=== PATIENT | male | born 1940 | race Caucasian/White ===

== ENCOUNTER 2019-08-04 11:50 | Inpatient (IN) | payer MEDICARE, OTHER, SELFPAY ==
[2019-07-29 09:40] VITALS: BMI 33.5
[2019-08-04] VITALS (12 sets, daily range): BP systolic 95–180; BP diastolic 54–95; PULSE 69–105; RESP 10–24; TEMP 36.2–36.6; O2SAT 2–99; BMI 33.5
--- NOTE | 2019-08-04 06:46 | DI.RAD.S_ITS ---
PROCEDURE: XR HIP W PEL IF DONE LT 2V INDICATIONS: post op films TECHNIQUE: 2 view(s) of the hip acquired. COMPARISON: [facility], CR, XR PELVIS WITH LATERAL HIP LEFT, 06/17/2019, 9:52. [facility], CR, XR PELVIS 1-2V, 08/04/2019, 16:03. FINDINGS: Bones: Patient is status post left hip arthroplasty, with hardware components in expected positions. The hip joint appears congruent. The visualized bony structures appear intact. Soft tissues: Overlying postoperative changes are noted. No suspicious soft tissue densities. IMPRESSION: Left hip prosthesis in anatomic alignment. Dictated by: Austin Ricketts M.D. on 08/04/2019 at 19:17 Approved by: Austin Ricketts M.D. on 08/04/2019 at 19:18
[2019-08-04] MEDS: LACTATED RINGERS 1,000 ML 42 ML IV ×2 (12:54→17:04)
[2019-08-04] MEDS: VANCOMYCIN 1,000 MG/200 ML PIGGYBACK 200 MG IV (13:41)
[2019-08-04] MEDS: PREGABALIN 75 MG CAPSULE PO (13:42)
[2019-08-04] MEDS: ACETAMINOPHEN 325 MG TABLET 975 MG PO (13:42)
--- NOTE | 2019-08-04 13:53 | PM.PREOP ---
Pre-operative Note Interval Note History & Physical reviewed/Exam performed by Physician: Yes Changes to H&P: No
--- NOTE | 2019-08-04 13:53 | PM.OP.1 ---
Operative Date/Time/Diagnoses Date of procedure: 08/04/19 Time of procedure: 14:31 Pre-op diagnosis: Left hip OA Post-op diagnosis: same Procedure & Clinicians Procedure: Left total hip arthroplasty Same procedure as scheduled: Yes Indications: The patient has had progressively worsening left hip pain with radiographic changes consistent with arthritis. Non-operative management has failed and the patient has requested total hip replacement. The risks, benefits and alternatives to surgery were discussed with the patient prior to proceeding. Risks discussed included, but were not limited to, failure to relieve pain, leg length discrepancy, dislocation, stiffness, infection, nerve damage, deep venous thrombosis, pulmonary embolism, stroke, coma, heart attack, permanent paralysis and , as well as the potential need for eventual revision of the prosthetic. Surgeon: Wendy Rush Conservation Officer: Birgit Falk Anesthesia Type: General and Spinal Operative Notes Findings: Severe left hip arthritis, adequate stability, adequate bone Closure Type: primary Specimen(s): none sent Prosthetic devices, grafts, tissues, transplants, or devices: 54 mm R3 cup, 54 neutral poly liner, size 7 high offset femoral stem, +0 head Applied: catheter and drain(s) Estimated Blood Loss (mL): 250 Blood products transfused: none Procedure in detail: The patient was seen in the pre-operative area, where the patient identified the left hip as the operative site and this was marked with my initials. The patient received pre-operative antibiotics and was taken to the operating room and placed on the operative table in the right lateral decubitus position after satisfactory anesthesia. A manager construction out was performed. The left leg was prepared from the ankle to the iliac crest with ChloroPrep in the usual fashion and draped through sterile drapes. The hip was approached through an approximately 20 cm incision centered over the greater trochanter and curving gently posteriorly as it went proximally. This was carried sharply to the fascia velvet, which was divided and retracted with a self retaining retractor. The trochanteric bursa was excised with care being taken to avoid the sciatic nerve, which was identified and protected throughout the case. The short external rotators were incised and the capsulomuscular flap was raised and tagged for later repair. The hip was dislocated, and a femoral neck osteotomy performed approximately 15 mm above the lesser trochanter. Retractors were placed around the femur. The canal was opened with a box cutting osteotome, followed by a T handled reamer and a lateralizing reamer. The chili pepper broach was then used, followed by sequential broaching until there was good stability of the broach in the femur. Retractors were placed to expose the acetabulum. The labrum and central soft tissues were removed. Reaming was performed initially going up in 2 mm increments, then 1 mm increments until good bite was obtained with an odd sized reamer. The cup 1 mm larger than the last reamer was then inserted using the appropriate anteversion guides. A trial neutral liner was placed. The broach was placed in the canal. A trial head and neck were then placed and the hip relocated and checked for leg length and stability. An intraoperative film confirmed the component position and no evidence of fracture. The patient was stable in the position of sleep, of squatting, and could be put through a range of motion with 45 degrees internal rotation without dislocation. At 90 degrees flexion, internal rotation to 70? was possible before dislocation. This was felt to be satisfactory and the appropriate components were opened, and the trials were removed. The acetabular liner was impacted into position. The final stem was then impacted into the prepared femoral canal. A brief Betadine soak was performed while trialing with head options. The hip was meticulously irrigated with normal saline. Finally the femoral head was impacted onto the stem. The acetabulum was cleared of all material and the hip relocated one final time. The capsulomuscular flap was then repaired to the greater trochanter though an awl hole using the tag sutures. The short external rotators were repaired with a nonabsorbable suture. A deep drain was placed and brought out anteriorly. The fascia velvet was closed with Vicryl. The subcutaneous layer was closed with barbed sutures and SteriStrips. An Aquacel Ag dressing was applied and the patient was taken to recovery having tolerated the procedure well. Complications: none Post-operative Condition: stable Disposition: Acute Care Plan for aftercare: The patient will be maintained on a standard total hip replacement protocol with weight bearing as tolerated and posterior hip precautions. The patient will receive Aspirin and sequential compression devices for DVT prophylaxis. The patient will be discharged home when safe for the home environment.
[2019-08-04] MEDS: CEFAZOLIN 2 GM/100 ML FROZ.PIGGY IV ×2 (14:50→22:09)
--- NOTE | 2019-08-04 15:10 | SUR.OPER ---
Lateral on padded OR bed. Gel axillary roll. Arms secured on padded armboard with pillow supporting top arm. Padded hip positioner braces x4 - anterior and posterior chest and pelvis. Additional gel pad used anterior pelvis. Gel pad under bottom leg from knee to foot and secured with tape over sheet.
[2019-08-04] MEDS: BUPIVACAINE 0.25% W/ EPI (PF) 10 ML VIAL 60 ML INJ (15:46)
[2019-08-04] MEDS: BUPIVACAINE LIPOSOME 266 MG/20 ML VIAL INJ (15:47)
[2019-08-04] MEDS: TRANEXAMIC ACID 1,000 MG VIAL 1000 MG INJ (15:51)
[2019-08-04] MEDS: SODIUM CHLORIDE IRRIG SOLUTION 250 ML, EPINEPHrine 1 MG IRR (15:58)
--- NOTE | 2019-08-04 16:24 | DI.RAD.S_ITS ---
PROCEDURE: XR PELVIS 1-2V INDICATIONS: INTEROP HIP TECHNIQUE: Intra-operative view of the pelvis and hip acquired. COMPARISON: None. FINDINGS: Bones: Intraoperative devices prior to placement of arthroplasty prostheses are in expected positions. No fractures or suspicious bony lesions. Soft tissues: Overlying surgical retractors are present, along with other intraoperative changes. IMPRESSION: Intraoperative arthroplasty components appear in expected position. Dictated by: Ebony Garcia M.D. on 08/04/2019 at 17:52 Approved by: Ebony Garcia M.D. on 08/04/2019 at 17:53
[2019-08-04] MEDS: LACTATED RINGERS 1,000 ML 125 ML IV (18:36)
--- NOTE | 2019-08-04 18:55 | PC.ADMIT ---
[facility] Admission Note: The patient,Rigoberto Perez,79 y/o, was given written information regarding hospital policies, unit procedures and contact persons. Patient's smoking status: Never smoker. Vital Signs - 8 hr 08/04/19 12:25 08/04/19 17:20 08/04/19 17:35 Temperature 97.9 F 97.1 F L Pulse Rate 105 H 75 82 Respiratory Rate 24 11 L 10 L Blood Pressure 179/88 H 95/54 L 129/86 Pulse Oximetry 98 98 99 08/04/19 17:50 08/04/19 17:55 08/04/19 18:10 Temperature Pulse Rate 72 69 74 Respiratory Rate 10 L 11 L 12 Blood Pressure 154/80 H 155/82 H 143/84 H Pulse Oximetry 99 98 2 L 08/04/19 18:50 Temperature Pulse Rate Respiratory Rate 18 Blood Pressure 154/77 H Pulse Oximetry 95 Patient admitted to room 221 S/P left MAN scheduled by Dr. Rush. Awake, alert, and pleasant. Received on RA 95%. Oriented to room, environment, and plan of care. HIgh fall risk precautions initiated, call light within reach. Family at bedside providing supportive care.
[2019-08-04] MEDS: ASPIRIN EC 81 MG TABLET PO (20:24)
[2019-08-04] MEDS: METFORMIN HCL 500 MG TABLET PO (20:24)
[2019-08-04] MEDS: METOPROLOL IR 25 MG TABLET 37.5 MG PO (20:24)
[2019-08-04] MEDS: ACETAMINOPHEN 325 MG TABLET 650 MG PO (20:24)
[2019-08-04] MEDS: DOCUSATE 100 MG CAPSULE PO (20:24)
[2019-08-05] MEDS: LACTATED RINGERS 1,000 ML 125 ML IV (02:16)
[2019-08-05 03:25] VITALS: BP 130/80; PULSE 109; RESP 16; TEMP 35.8; O2SAT 95
[2019-08-05 06:00] LABS: Hematocrit 35.3 % (41-53); Hemoglobin 11.8 g/dL (13.5-17.5)
[2019-08-05] MEDS: ACETAMINOPHEN 325 MG TABLET 650 MG PO ×2 (06:03→14:57)
[2019-08-05] MEDS: CEFAZOLIN 2 GM/100 ML FROZ.PIGGY IV (06:30)
[2019-08-05 08:00] VITALS: BP 138/77; PULSE 83; O2SAT 95
[2019-08-05 08:35] VITALS: BP 138/77; PULSE 89; RESP 16; O2SAT 95
[2019-08-05 08:42] VITALS: BP 138/77; PULSE 89
[2019-08-05] MEDS: TAMSULOSIN 0.4 MG CAPSULE PO (08:42)
[2019-08-05] MEDS: METFORMIN HCL 500 MG TABLET PO (08:42)
[2019-08-05] MEDS: CLOPIDOGREL 75 MG TABLET PO (08:42)
[2019-08-05] MEDS: LOSARTAN 50 MG TABLET PO (08:42)
[2019-08-05] MEDS: OXYCODONE IR 5 MG TABLET PO ×2 (08:42→13:23)
[2019-08-05] MEDS: ASPIRIN EC 81 MG TABLET PO (08:42)
[2019-08-05] MEDS: ATORVASTATIN 20 MG TABLET 40 MG PO (08:42)
[2019-08-05] MEDS: METOPROLOL IR 25 MG TABLET 37.5 MG PO (08:42)
[2019-08-05] MEDS: DOCUSATE 100 MG CAPSULE PO (08:42)
[2019-08-05] MEDS: FINASTERIDE 5 MG TABLET PO (08:43)
--- NOTE | 2019-08-05 10:54 | PT.IIE ---
Current Diagnoses Unilateral primary osteoarthritis, left hip (08/04/19) Surgery Performed Operation Date: 08/04/19 13:45 Actual Procedures p Total Hip Arthroplasty(Left) - Wendy Rush MD Surgical History (Last Updated 08/04/19 @ 12:51 by Zhao Alexandra RN) History of arthroplasty of left knee (Acute 02/25/08) History of colonoscopy (Acute) History of vasectomy (Acute) Hx of artificial heart valve replacement (Acute) Hx of heart artery stent (Acute 04/02/19) Hx of lumbosacral spine surgery (Acute 03/06/15) S/P right unicompartmental knee replacement (Acute 04/17/09) S/P TAVR (transcatheter aortic valve replacement) (Acute 05/08/19) Medical History (Last Updated 08/04/19 @ 12:51 by Zhao Alexandra RN) Afib (Acute) Arthritis (Acute) Cerebral vascular disease (Acute) Cerebrovascular accident, 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) Deaf (Acute) Depression (Acute) Diastolic dysfunction (Acute) DVT (deep venous thrombosis) (Acute) GERD (gastroesophageal reflux disease) (Acute) Heart murmur (Acute) HLD (hyperlipidemia) (Acute) HTN (hypertension) (Acute) Intracardiac thrombus (Acute ~09/2017) Irregular heart beats (Acute) Lumbar spine pain (Acute) Osteoarthritis (Acute) PAF (paroxysmal atrial fibrillation) (Acute) Pre-diabetes (Acute) Presence of external hearing-aid (Acute) Presence of IVC filter (Acute) Prostate atrophy (Acute) SOB (shortness of breath) (Acute) Stroke (Acute) Urinary frequency (Acute) Wears glasses (Acute) Physical Therapy Inpatient Evaluation/Re-Eval M1 PT/OT-IP Prior Functional Status Start: 08/05/19 12:59 Freq: NEEDED Status: Active Protocol: Document 08/05/19 10:54 AB (Rec: 08/05/19 13:13 AB [id number]) Medical Review Prior Functional Status Medical History Reviewed Yes Communication able to make needs known Mobility and Gait stated that he is independent with all mobilities and ambulation without AD but unable to ambulate much ue to hip pain Social History Household Members spouse Living Arrangements House Number of Floors (Floors) Two Floors Number of Stairs To Enter/Railing? has an elevator Home Environment High Toilet,Walk in Shower Home Equipment Four Wheel Walker,Hand Held Shower,Grab Bars In Shower M2 PT-IP Current Condition Start: 08/05/19 12:59 Freq: NEEDED Status: Active Protocol: Document 08/05/19 10:54 AB (Rec: 08/05/19 13:13 AB [id number]) Physical Therapy Current Condition Current Condition Evaluation Date 08/05/19 Treatment Diagnosis s/p L MAN posterior approach; difficulty in walking Onset Date 08/04/2019 Precautions Posterior Hip Precautions No Hip Flexion > 90 degrees,No Hip Internal Rotation,No Hip Adduction Weight Bearing Status Weight Bearing Status Weight Bear as Tolerated M3 PT-IP Subjective Start: 08/05/19 12:59 Freq: NEEDED Status: Active Protocol: Document 08/05/19 10:54 AB (Rec: 08/05/19 13:13 AB [id number]) Subjective Physical Therapy Visit Type Type Initial Evaluation Visit Start Time 10:54 Visit Stop Time 11:36 Total Visit Minutes 42 Number of SENIOR UX DESIGNER Visits 0 Physical Therapy Visit Comments Patient Comments pt agreeable to do PT Therapy Pain Assessment Pain When Pain Assessed At Rest Pain Present Pain Present Pain Reported Location left hip Intensity 5 Scale Used Numeric (1 - 10) Pain Management Techniques Apply Cold,Re-positioning, Timing of Activity with Medications M4 PT-IP Mobility and Gait Start: 08/05/19 12:59 Freq: NEEDED Status: Active Protocol: Document 08/05/19 10:54 AB (Rec: 08/05/19 13:13 AB [id number]) PT-Bed Mobility Assessment Supine to Sit Supine to Sit Standby Assistance Sit to Supine Sit to Supine Standby Assistance Scooting Scooting to Edge of Bed Standby Assistance PT-Transfer Assessment Sit to and From Stand Sit to and from Stand Standby Assistance,Contact Guard Assistance,1 Person Assistance,Use of Upper Extremities Equipment Transfer Assistive Device Gait Belt,Front Wheeled Walker Orthotic/Prosthetic Devices or Brace: No Transfers Transfer Destination Bed Transfer Technique ambulated using FWW Transfer Ability Level of Assist Standby Assistance,Contact Guard Assistance,1 Person Assistance,Use of Upper Extremities Comments Mobility Comments pt sitting on chair. reviewed hip precautions with pt. pt requires cues to recall. completed sit to stand from chair SBA to CGA and cues. pt ambulated towards the bed using FWW CGA ~ 12 ft. completed supine <>sit x2 reps SBA and cues for techniques. pt agreed to do more ambulation and completed ~ 75 ft using FWW SBA to CGA and cues for quads activation. pt ambulated back to the chair. positioned on chair. call light and table placed within reach. Gait Assessment Gait Gait Assistance Required: Standby Assistance,Contact Guard Assist Distance (Feet) 75 Able to Maintain Weight Bearing Status Yes During Gait Assistive Devices Assistive Device Gait Belt,Front Wheeled Walker Orthotic/Prosthetic Devices or Brace: No Gait Deviations General Gait Pattern Antalgic,Decreased Stride Length,Decreased Feet Clearance,Flexed Trunk Factors Limiting Gait Function Factors Limiting Gait Function Decreased Activity Tolerance, Decreased Strength,Difficulty Following Directions,Limited Range of Motion,Pain,Poor Balance,Poor Safety Awareness Comments Gait Comments pt ambulated 75+12 ft using FWW SBA to CGA and cues. pt presents with antalgic gait and increase L knee flexion during stance phase requiring cues for quads activation. pt has some confusion and decrease safety awareness. PT-Balance Assessment Sitting Balance and Reactions Static Sitting Balance Ability Good Dynamic Sitting Balance Ability Good Standing Balance and Reactions Static Standing Balance Ability Fair Dynamic Standing Balance Ability Fair Device Used FWW M5 PT-IP Objective Assessments Start: 08/05/19 12:59 Freq: NEEDED Status: Active Protocol: Document 08/05/19 10:54 AB (Rec: 08/05/19 13:13 AB [id number]) Orientation Orientation/Cognition Level of Alertness Alert Orientation Name,Place,Situation Language Function Ability Hard of Hearing Safety Awareness Decreased Safety Awareness Memory Description Short Term Impaired Gross Range of Motion Lower Extremity ROM Assessment Within Functional Limits Strength Lower Extremity Strength Assessment Left Impaired Hip 3+/5 Knee 4-/5 Sensation Assessment Sensation Gross Sensation WNL Muscle Tone Muscle Tone WNL Yes M6 PT-IP Treatment Start: 08/05/19 12:59 Freq: NEEDED Status: Active Protocol: Document 08/05/19 10:54 AB (Rec: 08/05/19 13:13 AB [id number]) Physical Therapy Treatment Education Education Provided Precautions,Weight Bearing Status,Post-Op Packet,Safety M7 PT-IP Assessment and Plan Start: 08/05/19 12:59 Freq: NEEDED Status: Active Protocol: Document 08/05/19 10:54 AB (Rec: 01/10/20 13:13 AB [id number]) PT Summary Assessment and Plan Potential Rehabilitation Potential Good Status of Condition at Evaluation Stable Summary Impairments Pain,ROM,Strength,Balance, Coordination,Sensation,Tone, Cognition,Bed Mobility, Transfers,Gait,Activity Tolerance Assessment Summary pt requiring SBA to CGA with mobility and cues for safety. pt will have spouse to assist pt. pt does not have a FWW at home and agreed to purchase one. Asked for a doctor's order. will conduct caregiver training when appropriate. Goals Bed Mobility Goal Independent Transfer Goal Independent,Front Wheeled Walker Gait Goal Independent,Front Wheel Walker Gait Distance 150 Days to Meet Goals 3 Frequency of Treatment Frequency Of Treatment Twice a Day Treatment Plan Physical Therapy Treatment Plan Bed Mobility Training,Transfer Training,Gait Training, Therapeutic Exercise,Balance Retraining,Post Op Education, Discharge Planning,Hot or Cold Pack,Neuromuscular Re-ed, Coordination Retraining,Manual Therapy Other Recommendations and Next Treatment ambulation, caregiver training Focus Recommendations To Nursing Amount of Assist Needed 1 Person Assist Discharge Recommendations PT Discharge Recommendations Home with Assistance, Outpatient PT Equipment Needed for Home Before FWW Discharge
--- NOTE | 2019-08-05 11:10 | PM.DS.1 ---
History of Present Illness History of Present Illness Date Patient Seen: 08/05/19 Time Patient Seen: 11:12 Chief complaint: [id number] Narrative: Don notes that he is doing 0 well overall. He sitting up in a chair he has to sit a little bit of stiffness in his left hip. He said that he felt fine over 90 did not have any problems with abdominal pain chest pain her other complaints. He did not feel lightheaded or weak when he got up. Discharge Providers Provider Date of admission: 08/04/19 11:50 Discharge Date: 08/05/19 Primary care physician: Matthew Barnes MD Consults: 07/29/19 13:31 Consult to Anesthesiology Routine Comment: Consulting Provider: Anesthesiologist Reason for consultation: Surgeon requested re: Cardiac 08/04/19 06:46 Consult to Anesthesiology Routine Comment: Consulting Provider: Anesthesiologist Reason for consultation: Regional block for post operative pain control 08/04/19 18:08 Consult to Discharge Planning Routine Comment: Consult to Physical Therapy Evaluate & Treat Comment: Physician Instructions: post op MAN protocol Consult to Respiratory Therapy Evaluate & Treat Comment: Physician Instructions: Evaluate and treat 08/05/19 11:08 Consult to Physical Therapy Evaluate & Treat Comment: Physician Instructions: please order FWW Discharge provider: Wendy Rush MD Summary Hospital Course Discharge Diagnosis: Left total hip arthroplasty, significant cardiovascular disease with recent history of valve replacement, anticoagulation on a regular basis Hospital Course: Patient was taken to the operating room and had an arterial line placed for intraoperative monitoring because of significant history of cardiovascular disease in increased risk for surgical intervention. He had a left total hip arthroplasty which he tolerated well and was stable throughout the anesthesia. He did well postoperatively was mobilized with physical therapy and was able to ambulate with weight-bearing as tolerated on the left leg. His cardiac status was stable postoperatively and he was felt to be an appropriate candidate for discharge. His Eliquis will be restarted at 1 tablet a day tonight tomorrow and the following day in the knee will go back on his routine anticoagulation medications. He was continued on Plavix through his surgical procedure and we did not have excessive bleeding intraoperatively. Status at Discharge Cognitive/behavioral status at discharge: oriented Functional status at discharge: uses cane/walker Overall status at discharge: patient is back to baseline Time Spent with Patient Time spent: Less than 30 minutes Exam Vital Signs (past 8 hours): - 08/05/19 03:25 08/05/19 08:00 08/05/19 08:35 Temperature 96.5 F L Pulse Rate 109 H 83 89 Respiratory Rate 16 16 Blood Pressure 130/80 138/77 138/77 Pulse Oximetry 95 95 95 08/05/19 08:42 Temperature Pulse Rate 89 Respiratory Rate Blood Pressure 138/77 Pulse Oximetry Oxygen Delivery Method Nasal Cannula Oxygen Flow Rate 0 Narrative Exam Narrative: He is alert he is oriented his abdomen is benign his dressings intact he has minimal swelling in bilateral lower extremities and no significant bruising, he has mild pain with range of motion in his hip, has some slight weakness of hip flexion Objective Labs Result Diagrams: 08/05/19 05:30 Labs: Laboratory Results - last 24 hr 08/05/19 05:30 Hgb 11.8 L Hct 35.3 L Discharge Plan Discharge Plan Patient Disposition: Home Discharge orders & Medications Prescriptions: New oxycodone 5 mg tablet 5 mg PO Q4-6H PRN (Reason: pain) Qty: 40 RF: 0 Continued clopidogrel [Plavix] 75 mg Tablet 75 mg PO DAILY RF: 0 Eliquis 5 mg Tablet 5 mg PO BID RF: 0 losartan 50 mg Tablet 50 mg PO DAILY RF: 0 atorvastatin 40 mg Tablet 40 mg PO DAILY RF: 0 metformin 500 mg Tablet 500 mg PO BID RF: 0 tamsulosin 0.4 mg Capsule 0.4 mg PO DAILY RF: 0 finasteride 5 mg Tablet 5 mg PO DAILY RF: 0 metoprolol tartrate 25 mg Tablet 37.5 mg PO BID RF: 0 Follow up/Referrals: Matthew Barnes MD [Primary Care Provider] - Wendy Rush MD [Physician] - Discharge Health Status Multidrug resistant organism: No MDRO Diet/Activity/Treatments Diet: Carb-consistent/Diabetic Activity: weight bearing as tolerated. follow cohen path total hip arthroplasty precautions. Cold/Heat Therapy: continue cold/heat therapy Skin/Wound/Dressing Care Report to your healthcare provider any signs of infection, such as:: chills, fever, increased pain, unusual drainage and unusual redness Dressing: keep dressing dry. do not soak (e.g. bath). contact office for dressing change Visit Report/Discharge Packet Instructions: DI for Hip Replacement, DI for Prescription Opioid Use Stand Alone Forms: Surgery Discharge Discharge Data Primary Care Provider: Matthew Barnes Quality VTE Deep Vein Thrombosis/Pulmonary Embolism Present on Admission: No
[2019-08-05 13:00] VITALS: BP 140/73; PULSE 94; RESP 18; TEMP 36.7; O2SAT 96
--- NOTE | 2019-08-05 13:40 | CM.IDA ---
Initial DCP Assessment Note: Pt is a 79 yo male, resident of [facility]. Pt is POD#1 from left hip surgery w/ Dr Rush and DC order is in place. Reviewed chart, therapy has cleared pt for return home w/spouse to assist and outpt PT, which pt has already arranged. Met w/pt briefly, he explained he was awaiting his DC today and felt he had everything he needed. Pt indp at baseline and eager to return home, dressed and sitting up in chair this afternoon. Pt appreciative for the visit. No barriers identified to safe DC home P: DC home today w/family assist via pov KILLIAN Patel Discharge Planning/Care Management CM Discharge Assessment Start: 08/05/19 13:36 Freq: Status: Active Protocol: Document 08/05/19 13:36 JEFFERY (Rec: 08/05/19 13:40 JEFFERY [id number]) Discharge Planning Assessment Assigned [employer] Operator KILLIAN Perez DPOA/Assigned Designee Name Anais Escobedo dtr Contact Information [phone] Advance Directives? Yes History Provided By Patient Prior Living Arrangements House Household Members spouse Type of transporation used prior to Drives own vehicle admit Independent with ADL's Yes Is patient alert and oriented? Yes Barriers to Discharge No Discharge Plan Home Transportation Arrangement Family Referrals Initiated None needed
--- NOTE | 2019-08-05 14:56 | PT.IPTN ---
Current Diagnoses Unilateral primary osteoarthritis, left hip (08/04/19) Surgery Performed Operation Date: 08/04/19 13:45 Actual Procedures p Total Hip Arthroplasty(Left) - Wendy Rush MD Physical Therapy Treatment Note M2 PT-IP Current Condition Start: 08/05/19 12:59 Freq: NEEDED Status: Active Protocol: Document 08/05/19 10:54 AB (Rec: 08/05/19 13:13 AB [id number]) Physical Therapy Current Condition Current Condition Evaluation Date 08/05/19 Treatment Diagnosis s/p L MAN posterior approach; difficulty in walking Onset Date 08/04/2019 Precautions Posterior Hip Precautions No Hip Flexion > 90 degrees,No Hip Internal Rotation,No Hip Adduction Weight Bearing Status Weight Bearing Status Weight Bear as Tolerated M3 PT-IP Subjective Start: 08/05/19 12:59 Freq: NEEDED Status: Active Protocol: Document 08/05/19 14:56 AB (Rec: 08/05/19 16:38 AB [id number]) Subjective Physical Therapy Visit Type Type Treatment Note Visit Start Time 14:56 Visit Stop Time 15:17 Total Visit Minutes 21 Number of PROGRAM DEVELOPMENT SPECIALIST Visits 0 Physical Therapy Visit Comments Patient Comments pt agreeable to do PT Therapy Pain Assessment Pain Present Pain Present Denied Pain M4 PT-IP Mobility and Gait Start: 08/05/19 12:59 Freq: NEEDED Status: Active Protocol: Document 08/05/19 14:56 AB (Rec: 08/05/19 16:38 AB [id number]) PT-Bed Mobility Assessment Sit to Supine Sit to Supine Standby Assistance PT-Transfer Assessment Sit to and From Stand Sit to and from Stand Contact Guard Assistance,1 Person Assistance,Use of Upper Extremities Equipment Transfer Assistive Device Gait Belt,Front Wheeled Walker Orthotic/Prosthetic Devices or Brace: No Transfers Transfer Destination Bed Transfer Technique ambulated using FWW Transfer Ability Level of Assist Standby Assistance,Contact Guard Assistance Comments Mobility Comments reviewed hip precautions with pt and pt requires cues to recall. Dispensed FWW to pt and pt signed consent. pt completed sit to stand CGA and cues. ambulated in the hallway using FWW SBA to CGA and cues for safety ~ 100 ft. pt requested to go back to bed afterwards and completed sit to supine SBA. positioned pt in bed. call light and table placed within reach. Gait Assessment Gait Gait Assistance Required: Standby Assistance,Contact Guard Assist Distance (Feet) 100 Able to Maintain Weight Bearing Status Yes During Gait Assistive Devices Assistive Device Gait Belt,Front Wheeled Walker Orthotic/Prosthetic Devices or Brace: No Gait Deviations General Gait Pattern Antalgic,Decreased Stride Length,Decreased Feet Clearance Factors Limiting Gait Function Factors Limiting Gait Function Decreased Activity Tolerance, Decreased Strength,Difficulty Following Directions,Pain,Poor Balance,Poor Safety Awareness Comments Gait Comments pt requires cues for safety as pt can be impulsive. pt presents with antalgic gait. M5 PT-IP Objective Assessments Start: 08/05/19 12:59 Freq: NEEDED Status: Active Protocol: Document 08/05/19 10:54 AB (Rec: 08/05/19 13:13 AB [id number]) Orientation Orientation/Cognition Level of Alertness Alert Orientation Name,Place,Situation Language Function Ability Hard of Hearing Safety Awareness Decreased Safety Awareness Memory Description Short Term Impaired Gross Range of Motion Lower Extremity ROM Assessment Within Functional Limits Strength Lower Extremity Strength Assessment Left Impaired Hip 3+/5 Knee 4-/5 Sensation Assessment Sensation Gross Sensation WNL Muscle Tone Muscle Tone WNL Yes M6 PT-IP Treatment Start: 08/05/19 12:59 Freq: NEEDED Status: Active Protocol: Document 08/05/19 14:56 AB (Rec: 08/05/19 16:38 AB [id number]) Physical Therapy Treatment Education Education Provided Precautions,Safety M7 PT-IP Assessment and Plan Start: 08/05/19 12:59 Freq: NEEDED Status: Active Protocol: Document 08/05/19 14:56 AB (Rec: 08/05/19 16:38 AB [id number]) PT Summary Assessment and Plan Potential Rehabilitation Potential Good Summary Impairments Pain,ROM,Strength,Balance, Coordination,Sensation,Tone, Cognition,Bed Mobility, Transfers,Gait,Activity Tolerance Progress Towards Goals Progressing Toward Goals Assessment Summary pt requires SBA to CGA with mobility and cues for safety. pt plans to go home and spouse will asssit pt. pt is set up for outpt PT. Goals Bed Mobility Goal Independent Transfer Goal Independent,Front Wheeled Walker Gait Goal Independent,Front Wheel Walker Gait Distance 150 Days to Meet Goals 3 Frequency of Treatment Frequency Of Treatment Twice a Day Treatment Plan Physical Therapy Treatment Plan Bed Mobility Training,Transfer Training,Gait Training, Therapeutic Exercise,Balance Retraining,Post Op Education, Discharge Planning,Hot or Cold Pack,Neuromuscular Re-ed, Coordination Retraining,Manual Therapy Other Recommendations and Next Treatment ambulation, caregiver training Focus Recommendations To Nursing Amount of Assist Needed 1 Person Assist Discharge Recommendations PT Discharge Recommendations Home with Assistance, Outpatient PT
[2019-08-05 16:05] VITALS: BP 144/72; PULSE 89; RESP 16; TEMP 37.2; O2SAT 96
--- NOTE | 2019-08-05 19:10 | PC.NURSE ---
Discharge/Eveningm Shift Note- Patient discharged home. Hemavac removed and dressing applied. Discharge paperwork and education reviewed with patient and signed. Patient and spouse packed up personal belongings. Patient taken via wheel chair to private car with all personal belongings ar
== END 2019-08-05 17:30 | disposition home or self-care (01) | DRG 470 ==
PROVIDERS: Admitting Provider Orthopaedic Surgery; PCP Family Medicine; Visit Provider Orthopaedic Surgery
PROC: 0SRB0JZ Replacement of Left Hip Joint with Synthetic Substitute, Open Approach (ICD-10-PCS; CPT 27130; principal; 2019-08-04 13:45)
DX: M16.12 Unilateral primary osteoarthritis, left hip (principal); E11.9 Type 2 diabetes mellitus without complications; I67.9 Cerebrovascular disease, unspecified; I48.91 Unspecified atrial fibrillation; I25.10 Atherosclerotic heart disease of native coronary artery without angina pectoris; Z79.01 Long term (current) use of anticoagulants; Z79.84 Long term (current) use of oral hypoglycemic drugs; Z95.5 Presence of coronary angioplasty implant and graft; Z86.711 Personal history of pulmonary embolism
CPT/HCPCS: 36415; 72170; 73502; 85014; 85018; 97116; 97161; C1776; C9290; J0171; J0690; J1170; J2704; J3010